=== PATIENT | male | born 1980 | race American Indian/Alaskan Native ===

== ENCOUNTER 2022-07-01 11:02 | Emergency (ER) | payer OTHER, MEDICAID ==
[~2022-07-01] VITALS: Ht 165.1 cm; Wt 63.0 kg
[2022-07-01 11:07] VITALS: BP 124/79
[2022-07-01] MEDS ORDERED: FLUORESCEIN SODIUM 1MG/STRIP BOTHEYE ONE (12:15)
[2022-07-01] MEDS ORDERED: TETRACAINE 0.5% OPHTH DROPS 4ML BOTHEYE ONE (12:15)
[2022-07-01 13:54] LABS: BASOPHILS % 0.6 % (0.0-2.0); EOSINOPHILS % 1.2 % (0.0-5.0); LYMPHOCYTES % 28.8 % (20.0-50.0); MEAN CORPUSCULAR HEMOGLOBIN 31.2 pg (28.0-32.0); MEAN CORPUSCULAR VOLUME 91.6 fL (80.0-94.0); MEAN PLATELET VOLUME 7.1 fl (7.4-10.4); MONOCYTES % 5.4 % (2.0-8.0); PLATELET 270 x1000/uL (130-400); RED BLOOD CELL COUNT 4.81 mill/uL (4.7-6.1); RED CELL DISTRIBUTION WIDTH 13.2 % (11.6-14.6)
[2022-07-01 14:08] LABS: CHLORIDE 103 mEq/L (98-107)
[2022-07-01] MEDS ORDERED: ERYT1OIN6 EACHEYE (14:31)
[2022-07-01 14:49] LABS: HEPATITIS B SURFACE ANTIGEN NEGATIVE
[2022-07-01 14:59] LABS: *AMPHETAMINES SCREEN URINE NEGATIVE (NEGATIVE); *BARBITURATES SCREEN URINE NEGATIVE (NEGATIVE); *BENZODIAZEPINES SCREEN URINE NEGATIVE (NEGATIVE); *COCAINE SCREEN URINE NEGATIVE (NEGATIVE); CANNABINOID URINE SCREEN PRESUMTIVE POSITIVE (NEGATIVE); METHADONE URINE SCREEN NEGATIVE (NEGATIVE); OPIATES URINE SCREEN NEGATIVE (NEGATIVE); PHENCYCLIDINE URINE SCREEN NEGATIVE (NEGATIVE)
[2022-07-01 15:04] LABS: ETHANOL BLOOD < 10 mg/dL
== END 2022-07-01 15:03 | disposition home or self-care (01) ==
LOC: ER 11:02
DX: S05.02XA Injury of conjunctiva and corneal abrasion without foreign body, left eye, initial encounter (principal); E80.6 Other disorders of bilirubin metabolism; F17.210 Nicotine dependence, cigarettes, uncomplicated; X58.XXXA Exposure to other specified factors, initial encounter; Y93.9 Activity, unspecified; Y92.9 Unspecified place or not applicable
CPT/HCPCS: 36415; 80053; 80305; 80307; 80320; 82248; 85025; 86705; 86709; 86803; 87340; 99283; G0480

== ENCOUNTER 2023-10-24 14:51 | Emergency (ER) | payer OTHER, MEDICAID ==
[~2023-10-24] VITALS: Ht 167.6 cm; Wt 61.0 kg
[~2023-10-24 14:51] MED LIST: ERYT1OIN6 EACHEYE
[2023-10-24 16:29] VITALS: O2SAT 99
[2023-10-24] MEDS ORDERED: LIDO700A15 TP (19:29)
[2023-10-24] MEDS ORDERED: CYCL5TAB MT (19:29)
[2023-10-24 19:51] VITALS: BP 129/74; PULSE 62; RESP 16; TEMP 98.2
== END 2023-10-24 19:57 | disposition home or self-care (01) ==
LOC: ER 14:51
DX: R51.9 Headache, unspecified (principal); F12.10 Cannabis abuse, uncomplicated; V49.49XA Driver injured in collision with other motor vehicles in traffic accident, initial encounter; Y93.89 Activity, other specified; Y92.89 Other specified places as the place of occurrence of the external cause; Y99.8 Other external cause status
CPT/HCPCS: 99284

== ENCOUNTER 2024-05-23 02:28 | Emergency (ER) | payer OTHER, MEDICAID ==
[~2024-05-23] VITALS: Ht 170.2 cm; Wt 57.0 kg
[~2024-05-23 02:28] MED LIST changes: +CYCL5TAB3 MT; +LIDO700A15 TP
[2024-05-23 02:48] VITALS: O2SAT 99
[2024-05-23 02:51] VITALS: TEMP 36.83628
[2024-05-23 05:17] VITALS: BP 120/79; PULSE 72; RESP 18; O2SAT 100
== END 2024-05-23 05:17 | disposition home or self-care (01) ==
LOC: ER 02:28
DX: S61.012A Laceration without foreign body of left thumb without damage to nail, initial encounter (principal); W26.0XXA Contact with knife, initial encounter; Y93.89 Activity, other specified; Y92.89 Other specified places as the place of occurrence of the external cause; Y99.8 Other external cause status
CPT/HCPCS: 99281